=== PATIENT | female | born 1955 | race Caucasian/White ===

== ENCOUNTER 2016-12-10 20:36 | Emergency (ER) | payer OTHER ==
[2016-12-10] MEDS ORDERED: SODIUM CHLORIDE 0.9% 1,000 ML IV ONE ×2 (20:59→21:06)
[2016-12-10] MEDS ORDERED: diltiaZEM INJ 5 MG/ML VIAL IVP STA ×3 (21:06→23:03)
[2016-12-10] MEDS ORDERED: diltiaZEM INJ 5 MG/ML VIAL ONE ×3 (21:15→23:07)
[2016-12-10] MEDS ORDERED: FLECAINIDE 50 MG TABLET PO STA (23:04)
[2016-12-10] MEDS ORDERED: FLECAINIDE 50 MG TABLET PO ONE (23:07)
[2016-12-11] MEDS ORDERED: diltiaZEM INJ 5 MG/ML VIAL IVP STA (00:26)
== END 2016-12-11 01:52 | disposition home or self-care (01) ==
DX: I48.91 Unspecified atrial fibrillation (principal); Z79.82 Long term (current) use of aspirin
CPT/HCPCS: 36415; 80053; 83690; 84443; 84484; 85025; 85379; 93005; 93010; 99284; A9270

== ENCOUNTER 2017-01-12 11:20 | Outpatient (CLI) | payer OTHER | END 2017-01-12 11:21 | disposition home or self-care (01) | DX: I48.0 Paroxysmal atrial fibrillation (principal); K76.89 Other specified diseases of liver ==

== ENCOUNTER 2017-02-07 08:48 | Outpatient (CLI) | payer OTHER | END 2017-02-07 08:49 | disposition home or self-care (01) | DX: K76.89 Other specified diseases of liver (principal) ==

== ENCOUNTER 2017-04-09 11:32 | Outpatient (CLI) | payer OTHER ==
[2017-04-09 16:05] VITALS: BP 128/86
--- NOTE | 2017-04-10 03:02 | CARDIAC PROCEDURE NOTE ---
DATE OF SERVICE: PRIMARY CARE PHYSICIAN: Dr. Lamar FORECAST ANALYST: Dr. Cruz PROCEDURE: Treadmill MPS. PROCEDURE SYMPTOMS: Paroxysmal atrial fibrillation. CARDIAC RISK FACTORS: Include age and family history. PREVIOUS CARDIAC PROCEDURES: In 2009 ETT. CLINICAL HISTORY: A 62-year-old female without known coronary artery disease. INITIAL RESTING VITAL SIGNS: Blood pressure 128/86, heart rate 71, height 65 inches, weight 165 pound s, BMI 27.5. PROCEDURE AND FINDINGS: The patient's identity and date verified. Consent signed. The patient p erformed treadmill exercise using a Kobe protocol completing 9 minutes, 21 seconds and completing an estimated workload of 10.1 metabolic equivalents. At target heart rate, Cardiolite was injected and the patient exercised another 60+ seconds. Maximal blood pressure was 194/68 with a heart rate of 145 beats per minute or 91% of maximum predicted heart rate for age. The blood pressure response to exer cise was abnormally high. The patient stopped because of fatigue. The resting ECG demonstrated normal sinus rhythm with early transition. Maximum ST segment depression was less than 0.5 mm and upsloping . No ectopy nor arrhythmia. FINAL IMPRESSION: 1. Negative stress electrocardiogram for ischemia by electrocardiographic criteria. 2. Negative stress test clinically for angina. 3. No ectopy nor arrhythmia. 4. Hypertensive response to exercise. 5. [place] [employer] functional class 1. 6. Await myocardial perfusion report. JOB #: [id number] EXT JOB #:[id number]
--- NOTE | 2017-04-10 08:20 | Nuclear Medicine Report ---
EXAM: SINGLE-ISOTOPE EXERCISE STRESS TEST. SINGLE-ISOTOPE AND ONE-DAY REST/STRESS MYOCARDIAL PERFUSION SCAN S WITH TOMOGRAPHIC IMAGING, QUANTITATIVE ANALYSIS, WALL MOTION ANALYSIS AND CALCULATION OF EJECTION F RACTION. EXAM DATE: 04/09/2017 10:00 AM. CLINICAL HISTORY: Paroxysmal with atrial fibrillation. COMPARISON: None available. TECHNIQUE: A rest myocardial perfusion scan was done with tomography after the intravenous administration of 13 mCi Tc-99m sestamibi. After an appropriate delay, a treadmill exercise stress was performed according to department protoco l. The patient exercised for 9 minutes and 21 seconds. The maximum heart rate was 191 bpm, which was 120% of the maximum predicted heart rate of 159 bpm. At approximately peak heart rate, 39 mCi of Tc-9 9m sestamibi was injected for stress myocardial perfusion scan. Motion correction was applied when ap propriate. Gated tomographic images were obtained for wall motion analysis and computation of left ventricular e jection fraction. FINDINGS: No convincing fixed or reversible perfusion defects are identified. Wall motion analysis demonstrates no focal wall motion abnormality. The left ventricular end-diastolic volume is 62 cc. The left ventricular end-systolic volume is 10 cc . The left ventricular ejection fraction is calculated to be 85%. IMPRESSION: 1. No scintigraphic findings to indicate myocardial ischemia. Negative for infarct. 2. Normal left ventricular ejection fraction of >65%. 3. Normal segmental and global wall motion. 4. Normal left ventricular cavity size, no change with stress. [facility] Referring Provider Line: [phone] SITE ID: [id number]
== END 2017-04-09 11:33 | disposition home or self-care (01) ==
LOC: DI 11:32
PROVIDERS: ATTEND Internal Medicine Cardiovascular Disease
DX: I48.0 Paroxysmal atrial fibrillation (principal)
CPT/HCPCS: 78452; 93017; A9500

== ENCOUNTER 2017-05-13 13:55 | Outpatient (CLI) | payer OTHER ==
--- NOTE | 2017-05-14 11:49 | Mammography Report ---
DIGITAL SCREENING MAMMOGRAM: 05/13/2017 CLINICAL INDICATION: A 62-year-old with family history of breast cancer for screening. COMPARISON: 04/2016, 02/2015, 11/2013, 06/2012, 04/2011, 12/2009, 06/2008 TECHNIQUE: Routine CC and MLO projections were obtained of the breasts as well as bilateral laterall y exaggerated craniocaudal views. FINDINGS: The breasts demonstrate scattered fibroglandular densities bilaterally. Punctate, typical ly benign calcifications are present. No suspicious masses, clustered microcalcifications, or region s of architectural distortion are identified. IMPRESSION: BENIGN FINDINGS. RECOMMENDATION: Routine annual screening unless otherwise clinically indicated. BIRADS CATEGORY 2 - BENIGN FINDINGS. STANDARD QUALIFYING STATEMENTS 1. This examination was reviewed with the aid of Computer-Aided Detection (CAD). 2. A negative or benign imaging report should not delay biopsy if clinically suspicious findings are present. Consider surgical consultation if warranted. More than 5% of cancers are not identified by i maging. 3. Dense breasts may obscure an underlying neoplasm. JOB #: [id number] EXT JOB #:[id number]
== END 2017-05-13 13:56 | disposition home or self-care (01) ==
LOC: DI 13:55
PROVIDERS: ATTEND Family Medicine
DX: Z12.31 Encounter for screening mammogram for malignant neoplasm of breast (principal); Z80.3 Family history of malignant neoplasm of breast
CPT/HCPCS: 77067

== ENCOUNTER 2017-05-22 08:00 | Outpatient (CLI) | payer OTHER ==
[2017-05-22 14:22] LABS: ALBUMIN/GLOBULIN RATIO 1.7 (1.0-2.2); BILIRUBIN,TOTAL 0.5 mg/dL (0.2-1.0); BUN - BLOOD UREA NITROGEN 19 mg/dL (6-20); CALCIUM 9.1 mg/dL (8.5-10.3); CARBON DIOXIDE - CO2 29 mmol/L (21-32); CHLORIDE 105 mmol/L (101-111); CHOL/HDL RATIO 3.6 (<4.4); CHOLESTEROL 222 mg/dL; CREATININE 0.7 mg/dL (0.4-1.0); GFR - MDRD 85 (>89); GLUCOSE 102 mg/dL (70-100); HDL CHOLESTEROL 61 mg/dL; LDL/HDL RATIO 2.4 (<4.4); POTASSIUM 3.9 mmol/L (3.5-5.0); SODIUM 141 mmol/L (135-145); TOTAL PROTEIN 6.8 g/dL (6.7-8.2); TRIGLYCERIDES 79 mg/dL; VLDL CHOLESTEROL 16 mg/dL
== END 2017-05-22 08:01 | disposition home or self-care (01) ==
LOC: LAB.WCP 08:00
PROVIDERS: ATTEND Family Medicine
DX: E78.5 Hyperlipidemia, unspecified (principal)
CPT/HCPCS: 36415; 80053; 80061

== ENCOUNTER 2017-06-03 11:16 | Outpatient (CLI) | payer OTHER ==
--- NOTE | 2017-06-04 12:43 | Ultrasound Report ---
ULTRASOUND OF THE LEFT ANKLE: 06/03/2017 CLINICAL HISTORY: Patient has swelling of the left ankle. TECHNIQUE: Real-time scanning was performed with customer development representative static images obtained. FINDINGS: Left lateral ankle shows a well-circumscribed hypoechoic prominence within its lateral asp ect that most likely represents a benign lipoma. It measures 2.6 x 0.56 x 3.36 cm. This mass appear s relatively homogeneous and well-circumscribed. It most likely represents a benign lipoma. Recomme nd an MRI of the left ankle to further confirm this benign etiology. IMPRESSION: PATIENT'S PALPABLE MASS ALONG THE LATERAL ASPECT OF THE LEFT ANKLE PRESENTS A WELL-CI RCUMSCRIBED HYPOECHOIC LESION MEASURING 2.6 X 0.56 X 3.36 CM. IT MOST LIKELY REPRESENTS A BENIGN LIP MARYLOU. RECOMMEND A NONCONTRAST MRI OF THE LEFT ANKLE TO FURTHER CONFIRM THIS BENIGN ETIOLOGY. JOB #: [id number] EXT JOB #:[id number]
== END 2017-06-03 11:17 | disposition home or self-care (01) ==
LOC: DI 11:16
PROVIDERS: ATTEND Family Medicine
DX: R22.42 Localized swelling, mass and lump, left lower limb (principal)
CPT/HCPCS: 76882

== ENCOUNTER 2017-06-17 13:37 | Outpatient (CLI) | payer OTHER ==
--- NOTE | 2017-06-17 17:09 | MRI Report ---
EXAM: LEFT ANKLE/HINDFOOT MRI WITHOUT CONTRAST EXAM DATE: 06/17/2017 02:31 PM. CLINICAL HISTORY: Left ankle swelling. COMPARISON: None. TECHNIQUE: Multiplanar, multisequence T1-weighted and fluid-sensitive sequences of the ankle/hindfoot without contrast. Other: None. FINDINGS: Bones: No fractures or subluxations. No marrow edema. No bone lesions. Articular Cartilage: Unremarkable. Ligaments: The anterior and posterior tibiofibular, anterior and posterior talofibular, and calcaneof ibular ligaments are intact. The deep and superficial deltoid and spring ligaments are intact. Anterior Tendons: The tibialis anterior, extensor hallucis longus, and extensor digitorum longus tend ons are unremarkable. Medial Tendons: The tibialis posterior, flexor digitorum longus, and flexor hallucis longus tendons a re unremarkable. Lateral Tendons: The peroneus brevis and longus are unremarkable. Achilles Tendon: The Achilles tendon is unremarkable. Musculature: No edema or fatty atrophy. Other: No effusions. The contents of the sinus tarsi and tarsal tunnel are unremarkable. No plantar f asciitis. At the site of the palpable abnormality, the patient has a subcutaneous lipoma lateral to t he talus. This measures approximately 0.9 x 4.0 x 3.2 cm (series 801, image 15). IMPRESSION: Subcutaneous lipoma at the site of the palpable abnormality. [facility] MUSCULOSKELETAL RADIOLOGY SECTION Referring Provider Line: [phone] SITE ID: [id number]
== END 2017-06-17 13:38 | disposition home or self-care (01) ==
LOC: DI 13:37
PROVIDERS: ATTEND Family Medicine
DX: D17.79 Benign lipomatous neoplasm of other sites (principal)

== ENCOUNTER 2017-08-17 07:33 | Outpatient (CLI) | payer OTHER ==
--- NOTE | 2017-08-17 10:00 | Ultrasound Report ---
LIVER ULTRASOUND: 08/17/2017 CLINICAL INDICATION: Liver cyst. TECHNIQUE: Real-time scanning was performed with lead customer service representative static images obtained. COMPARISON: 02/07/2017. FINDINGS: The liver measures 16.9 cm. A simple cyst is again seen in the left lobe, slightly larger than previous, now measuring 8.4 x 7.6 x 5.7 cm (previously 7.5 x 7.1 x 4.5 cm). The remaining hepati c echotexture appears echogenic, compatible with fatty infiltration. The common bile duct measures 5 mm. No intrahepatic biliary dilatation or solid parenchymal lesion is seen. No free fluid is present. IMPRESSION: SLIGHT INTERVAL INCREASE IN SIZE OF LEFT HEPATIC CYST, NOW MEASURING 8.4 CM IN MAXIMAL D IAMETER (PREVIOUSLY 7.5 CM). NO BILIARY OBSTRUCTION OR SOLID HEPATIC LESION. JOB #: [id number] EXT JOB #:[id number]
== END 2017-08-17 07:34 | disposition home or self-care (01) ==
LOC: DI 07:33
PROVIDERS: ATTEND Family Medicine
DX: K76.89 Other specified diseases of liver (principal)
CPT/HCPCS: 76705

== ENCOUNTER 2017-12-07 08:21 | Outpatient (CLI) | payer OTHER ==
--- NOTE | 2017-12-07 14:14 | Ultrasound Report ---
DATE OF SERVICE: 12/07/2017 RIGHT UPPER QUADRANT ULTRASOUND: 12/07/2017 CLINICAL INDICATION: Hepatic cyst. TECHNIQUE: Real-time scanning was performed with sales representative cash registers static images obtained. FINDINGS: As requested, an ultrasound of the liver was performed. The liver measures 17 cm. Hepatic echogenicity is normal. No intrahepatic biliary dilatation or focal parenchymal lesion is present. The common bile duct measures 7 mm. The cyst in the left lobe of the liver measures 7.9 x 7.4 x 5.3 cm. No free fluid is noted. IMPRESSION: STABLE CYST IN THE LEFT LOBE OF THE LIVER. TD: 12/07/2017 15:13
== END 2017-12-07 08:22 | disposition home or self-care (01) ==
LOC: DI 08:21
PROVIDERS: ATTEND Family Medicine
DX: K76.89 Other specified diseases of liver (principal)
CPT/HCPCS: 76705

== ENCOUNTER 2018-07-08 08:54 | Outpatient (CLI) | payer OTHER | END 2018-07-08 08:55 | disposition home or self-care (01) | LOC: DI.N 08:54 | PROVIDERS: ATTEND Radiology Diagnostic Radiology | DX: Z12.31 Encounter for screening mammogram for malignant neoplasm of breast (principal) | CPT/HCPCS: 77067 ==

== ENCOUNTER 2018-12-24 07:17 | Outpatient (CLI) | payer OTHER ==
--- NOTE | 2018-12-24 11:32 | Ultrasound Report ---
Reason: HEPATIC CYST Procedure Date: 12/24/2018 Accession Number: [id number] / [id number] Procedure: US - Abdomen Limited CPT Code: FULL RESULT: EXAM: ABDOMEN ULTRASOUND LIMITED, RUQ EXAM DATE: 12/24/2018 07:35 AM. CLINICAL HISTORY: Hepatic cyst. COMPARISON: Abdomen limited 12/07/2017 8:41 AM. Abdomen limited 02/07/2017 8:51 AM. Complete 01/12/2017 11:35 AM. TECHNIQUE: Real-time scanning was performed with static images obtained. FINDINGS: Liver: Normal in size and echotexture. 16.4 cm. Main portal vein flow: Hepatopetal. There is an oval anechoic simple cyst of the left lobe of liver measuring 8.1 x 6.5 x 8.8 cm. Accounting for technical measurement variations, there has been no significant interval change dating back to 02/07/2017. Gallbladder: Normal. No stones, wall thickening, or sonographic Wild's sign. Biliary System: CBD measures 6.5 mm. No intrahepatic or extrahepatic ductal dilatation. Other: Normal appearance of the right kidney. IMPRESSION: 1. Stable simple cyst of the left lobe of liver today measuring 8.8 cm in maximum dimension. [facility]
== END 2018-12-24 07:18 | disposition home or self-care (01) ==
LOC: DI 07:17
PROVIDERS: ATTEND Family Medicine
DX: K76.89 Other specified diseases of liver (principal)
CPT/HCPCS: 76705

== ENCOUNTER 2019-04-19 15:33 | Outpatient (CLI) | payer OTHER ==
--- NOTE | 2019-04-19 17:39 | Ultrasound Report ---
Reason: LIPOMA Procedure Date: 04/19/2019 Accession Number: [id number] / [id number] Procedure: US - Ext Limited Non Vascular CPT Code: FULL RESULT: EXAM: RIGHT LOWER EXTREMITY ULTRASOUND - LIMITED EXAM DATE: 04/19/2019 04:46 PM. CLINICAL HISTORY: Right lateral ankle swelling. COMPARISON: EXT LIMITED NON VASCULAR 06/03/2017 11:21 AM. TECHNIQUE: Real-time scanning was performed with static images obtained. FINDINGS: Sonographic interrogation of patient's lateral right ankle lump demonstrates a lobulated hypoechoic lesion with echotexture similar to adjacent fat measuring 2.7 x 3.3 x 0.5 cm. No aggressive characteristics or cystic foci present. No hypervascularity. IMPRESSION: Probable sub-cutaneous lipoma about the lateral right ankle at site of palpable lump. [facility]
== END 2019-04-19 15:34 | disposition home or self-care (01) ==
LOC: DI 15:33
PROVIDERS: ATTEND Family Medicine
DX: D17.9 Benign lipomatous neoplasm, unspecified (principal)
CPT/HCPCS: 76882

== ENCOUNTER 2019-10-17 14:22 | Outpatient (CLI) | payer OTHER ==
--- NOTE | 2019-10-17 16:51 | Mammography Report ---
Reason: SCREENING MAMMO Procedure Date: 10/17/2019 Accession Number: [id number] / [id number] Procedure: BEATRIZ - Screening Mammo w/Gabriel CPT Code: Final Report FULL RESULT: EXAM: Screening Mammo w/Gabriel DATE: 10/17/2019 2:27 PM CLINICAL HISTORY: The patient is an asymptomatic 64-year-old female presenting for screening mammography. Family history of breast cancer. TECHNIQUE: (B) - Bilateral CC and MLO views were obtained. Tomography utilized. COMPARISON: 07/08/2018, 05/13/2017, 04/28/2016, 03/05/2015 and 12/14/2013 PARENCHYMAL PATTERN: (A) - The breasts demonstrate scattered fibroglandular densities bilaterally. FINDINGS: The pattern of asymmetry is stable given positional differences. Few scattered and loosely grouped calcifications again identified. There are no developing suspicious masses, calcifications, or areas of distortion. IMPRESSION: Benign findings. BI-RADS category 2. RECOMMENDATION: (ANNUAL) - Recommend routine annual screening mammography. BI-RADS CATEGORY: BI-RADS category 2. STANDARD QUALIFYING STATEMENTS: 1. This examination was not reviewed with the aid of Computer-Aided Detection (CAD). 2. A negative or benign imaging report should not preclude biopsy if clinically suspicious findings are present. 3. Dense breasts may obscure an underlying neoplasm. 4. This examination was reviewed with the aid of 3D breast imaging (tomosynthesis).
== END 2019-10-17 14:23 | disposition home or self-care (01) ==
LOC: DI 14:22
DX: Z12.31 Encounter for screening mammogram for malignant neoplasm of breast (principal); Z80.3 Family history of malignant neoplasm of breast
CPT/HCPCS: 77063; 77067

== ENCOUNTER 2019-11-25 11:08 | Outpatient (CLI) | payer OTHER | END 2019-11-25 11:09 | disposition home or self-care (01) | LOC: DI 11:08 | PROVIDERS: ATTEND Internal Medicine Cardiovascular Disease | DX: I48.0 Paroxysmal atrial fibrillation (principal); I31.3 Pericardial effusion (noninflammatory) | CPT/HCPCS: 93306 ==

== ENCOUNTER 2020-07-25 07:25 | Outpatient (CLI) | payer OTHER ==
--- NOTE | 2020-07-25 10:39 | Ultrasound Report ---
PROCEDURE: Abdomen Complete INDICATIONS: HEPATIC CYST TECHNIQUE: Real-time scanning was performed of the abdominal and retroperitoneal organs, with image documentatio n. COMPARISON: None. FINDINGS: Liver: Liver is enlarged with increased liver parenchymal echotexture consistent with hepatic steato sis. 7.5 x 7.2 x 5.5 cm simple appearing cyst is noted in left lobe of liver. No gross solid appearin g hepatic lesion. Gallbladder: There is no gallstone. No gallbladder wall thickening or pericholecystic fluid. No sonog raphic Wild's sign. Biliary ducts: Intrahepatic bile ducts are non-dilated. Extrahepatic bile duct caliber measures 6.9 mm. Normal is 6-7 mm or less in diameter, or 10 mm or less post-cholecystectomy. Pancreas: Visualized portions of the pancreas are sonographically normal. Spleen: Spleen is normal in size and homogeneous in echotexture. Kidneys: Kidneys are normal in size and echotexture. Right kidney measures 11.2 cm long; left kidne y measures 11.3 cm long. No hydronephrosis or nephrolithiasis. No solid masses. Aorta: Visualized aorta is normal in caliber at less than 3 cm. Iliacs: Proximal common iliac arteries are normal in caliber at less than 2.5 cm. IVC: Intrahepatic inferior vena cava is patent. Miscellaneous: No free abdominal fluid. IMPRESSION: 1. Simple appearing left hepatic lobe cyst measures 7.5 x 7.2 x 5.5 cm in size. Mild hepatomegaly and hepatic steatosis. No gross solid appearing hepatic lesion. 2. Rest of the exam is unremarkable. Reviewed by: Pito Olmos MD on 07/25/2020 10:37 AM PDT Approved by: Pito Olmos MD on 07/25/2020 10:37 AM PDT Station ID: [id number]
== END 2020-07-25 07:26 | disposition home or self-care (01) ==
LOC: DI 07:25
PROVIDERS: ATTEND Family Medicine
DX: K76.89 Other specified diseases of liver (principal); K76.0 Fatty (change of) liver, not elsewhere classified
CPT/HCPCS: 76700

== ENCOUNTER 2020-08-29 08:00 | Outpatient (CLI) | payer OTHER ==
[2020-08-29 18:31] LABS: BASOPHILS # (AUTO) 0.1 10^3/uL (0.0-0.1); BASOPHILS % (AUTO) 1.5 %; EOSINOPHILS # (AUTO) 0.1 10^3/uL (0.0-0.7); EOSINOPHILS % (AUTO) 1.8 %; HGB - HEMOGLOBIN 14.4 g/dL (12.0-16.0); LYMPHOCYTES # (AUTO) 1.7 10^3/uL (1.5-3.5); LYMPHOCYTES % (AUTO) 30.9 %; MEAN CORPUSCULAR HEMOGLOBIN 31.7 pg (27.0-31.0); MEAN CORPUSCULAR HGB CONC 31.9 g/dL (32.0-36.0); MEAN CORPUSCULAR VOLUME 99.3 fL (81.0-99.0); MEAN PLATELET VOLUME 10.2 fL (7.9-10.8); MONOCYTES # (AUTO) 0.4 10^3/uL (0.0-1.0); MONOCYTES % (AUTO) 6.8 %; NEUTROPHILS # (AUTO) 3.2 10^3/uL (1.5-6.6); NEUTROPHILS % (AUTO) 58.6 %; PLT - PLATELET COUNT 288 10^3/uL (130-450); RED BLOOD COUNT 4.54 10^6/uL (4.20-5.40); RED CELL DISTRIBUTION WIDTH 12.8 % (12.0-15.0); WHITE BLOOD COUNT 5.4 x10^3/uL (4.8-10.8)
[2020-08-29 18:46] LABS: ALBUMIN 4.5 g/dL (3.2-5.5); ALBUMIN/GLOBULIN RATIO 1.7 (1.0-2.2); ALKALINE PHOSPHATASE 74 IU/L (42-121); ALT ALANINE AMINOTRANSFERASE 22 IU/L (10-60); AST ASPARTATE AMINOTRANSFERASE 15 IU/L (10-42); BILIRUBIN,TOTAL 0.5 mg/dL (0.2-1.0); BUN - BLOOD UREA NITROGEN 18 mg/dL (6-20); CALCIUM 9.5 mg/dL (8.5-10.3); CARBON DIOXIDE - CO2 29 mmol/L (21-32); CHLORIDE 103 mmol/L (101-111); CHOL/HDL RATIO 3.4 (<4.4); CHOLESTEROL 250 mg/dL; CREATININE 0.8 mg/dL (0.4-1.0); GLUCOSE 96 mg/dL (70-100); HDL CHOLESTEROL 73 mg/dL; LDL CHOLESTEROL,CALCULATED 163 mg/dL; LDL/HDL RATIO 2.2 (<4.4); SODIUM 139 mmol/L (135-145); TOTAL PROTEIN 7.2 g/dL (6.7-8.2); VLDL CHOLESTEROL 14 mg/dL
[2020-08-29 20:27] LABS: HEMOGLOBIN A1c% 5.3 % (4.27-6.07)
== END 2020-08-29 08:01 | disposition home or self-care (01) ==
LOC: LAB.WCP 08:00
PROVIDERS: ATTEND Family Medicine
DX: I48.0 Paroxysmal atrial fibrillation (principal); E74.39 Other disorders of intestinal carbohydrate absorption
CPT/HCPCS: 36415; 80050; 80061; 83036; 83721

== ENCOUNTER 2020-10-17 07:20 | Outpatient (CLI) | payer OTHER ==
[2020-10-17 14:28] LABS: BILIRUBIN,URINE NEGATIVE (NEGATIVE); GLUCOSE, URINE (UA) NEGATIVE (NEGATIVE); KETONES,URINE (UA) NEGATIVE (NEGATIVE); LEUKOCYTE ESTERASE, URINE LARGE (NEGATIVE); NITRITE,URINE POSITIVE (NEGATIVE); OCCULT BLOOD,URINE MODERATE (NEGATIVE); PROTEIN,URINE NEGATIVE (NEGATIVE); UROBILINOGEN,URINE 0.2 (NORMAL) E.U./dL (NORMAL)
[2020-10-17 14:37] LABS: CLARITY,URINE CLOUDY (CLEAR)
[2020-10-17 14:51] LABS: BACTERIA,URINE Many /HPF (None Seen); SQUAMOUS EPITHELIAL CELL,UR RARE Squamous (<= Few); WBC CLUMPS,URINE PRESENT
== END 2020-10-17 23:59 | disposition home or self-care (01) ==
LOC: LAB.R 07:20
PROVIDERS: ATTEND Nurse Practitioner
DX: N30.01 Acute cystitis with hematuria (principal)
CPT/HCPCS: 81001; 87077; 87086; 87181

== ENCOUNTER 2020-10-26 08:47 | Outpatient (CLI) | payer OTHER ==
--- NOTE | 2020-10-29 10:19 | Mammography Report ---
BILATERAL DIGITAL SCREENING MAMMOGRAM 3D/2D: 10/26/2020 CLINICAL: Routine screening. Family history of breast cancer. Comparison is made to exams dated: 10/17/2019 mammogram, 07/08/2018 mammogram, 05/13/2017 mammogram, mammogram, 03/05/2015 mammogram, and 12/14/2013 mammogram - [facility]. Ther e are scattered fibroglandular elements in both breasts. No significant masses, calcifications, or other findings are seen in either breast. There has been no significant interval change. IMPRESSION: NEGATIVE There is no mammographic evidence of malignancy. A 1 year screening mammogram is recommended. This exam was interpreted at Station ID: [id number]. NOTE: For mammograms, a report in lay terms will be sent to the patient. Approximately 15% of breast malignancies will not be visualized mammographically. In the management of a palpable breast mass, a negative mammogram must not discourage biopsy of a clinically suspicious lesion. Electronically Signed By: Ollie Stock M.D. atbry/javon:10/26/2020 10:23:29 ACR BI-RADS Category 1: Negative 3341F PARENCHYMAL PATTERN: (A) - The breast(s) demonstrate(s) scattered fibroglandular densities. BI-RADS CATEGORY: (1) - 1 RECOMMENDATION: (ANNUAL) - Recommend routine annual screening mammography. [id number] 1 year screening LATERALITY: (B)
== END 2020-10-26 08:48 | disposition home or self-care (01) ==
LOC: DI.N 08:47
DX: Z12.31 Encounter for screening mammogram for malignant neoplasm of breast (principal); Z80.3 Family history of malignant neoplasm of breast

== ENCOUNTER 2020-11-30 19:08 | Emergency (ER) | payer OTHER ==
[2020-11-30 19:14] VITALS: BP 146/86
--- NOTE | 2020-11-30 19:55 | XRAY Report ---
PROCEDURE: Elbow 3 View LT INDICATIONS: Fall TECHNIQUE: 3 views of the elbow were acquired. COMPARISON: None FINDINGS: Acute mildly displaced fracture of the radial head neck junction along the lateral aspect, best seen on oblique view. Small elbow joint effusion. IMPRESSION: Acute mildly displaced radius fracture at the head/neck junction. Reviewed by: Keven Campbell MD on 11/30/2020 7:54 PM PST Approved by: Keven Campbell MD on 11/30/2020 7:54 PM PST Station ID: [id number]
--- NOTE | 2020-11-30 19:56 | XRAY Report ---
PROCEDURE: Forearm LT INDICATIONS: Fall TECHNIQUE: 2 views of the forearm were acquired. COMPARISON: None. FINDINGS: Acute mildly displaced fracture of the radial head neck junction. Radius and ulna are other lewis intact. Normal anatomic alignment of the wrist. IMPRESSION: Acute mildly displaced fracture of the radial head/neck junction. Reviewed by: Keven Campbell MD on 11/30/2020 7:54 PM PST Approved by: Keven Campbell MD on 11/30/2020 7:54 PM PST Station ID: [id number]
--- NOTE | 2020-11-30 19:58 | XRAY Report ---
PROCEDURE: Ribs 2 View LT INDICATIONS: Trauma, fall, rib pain TECHNIQUE: 3 views of the left ribs and a single PA chest were obtained. COMPARISON: None FINDINGS: Surgical changes and devices: None. Bones and chest wall: No fractures or dislocations. No suspicious bony lesions. Overlying soft tis sues appear unremarkable. Lungs and pleura: The visualized lung appears clear. No pleural effusions or pneumothorax are visib le. IMPRESSION: No plain radiographic evidence of rib fracture demonstrated. Reviewed by: Keven Campbell MD on 11/30/2020 7:56 PM PST Approved by: Keven Campbell MD on 11/30/2020 7:56 PM PST Station ID: [id number]
[2020-11-30] MEDS ORDERED: oxyCODONE 5 MG TABLET PO STA (20:19)
[2020-11-30] MEDS ORDERED: ONDANSETRON ODT 4 MG TABLET TL STA (20:19)
--- NOTE | 2020-11-30 20:21 | ED Physician Documentation ---
History of Present Illness - Stated complaint Stated Complaint: FELL DOWN STAIRS - Chief complaint Chief Complaint: Trauma Ext - History obtained from History obtained from: Patient - History of Present Illness Timing: Today Pain level max: 6 Pain level now: 5 - Additonal information Additional information: Patient is a 65-year-old female who presents to the emergency department after a fall down the stairs earlier today. Complains of pain to the left elbow and left ribs. Worse with movement, better with rest. Did not strike her head. No neck or back pain. No loss of consciousness. No vomiting. No numbness or tingling. Review of Systems Constitutional: denies: Fever, Chills GI: denies: Vomiting Musculoskeletal: denies: Neck pain, Back pain Neurologic: denies: Confused, Headache, Head injury, LOC PD PAST MEDICAL HISTORY - Past Medical History Past Medical History: Yes Cardiovascular: High cholesterol, Atrial fibrillation, Murmur Respiratory: None GI: GERD Psych: Depression - Past Surgical History Past Surgical History: Yes General: Other - Present Medications Home Medications: Ambulatory Orders Medication Instructions Recorded Confirmed Aspirin 81 mg PO DAILY 12/10/16 11/30/20 Biotin 5 mg PO DAILY 12/10/16 11/30/20 Bupropion HCl [Wellbutrin Xl] 300 mg PO DAILY 12/10/16 11/30/20 Calcium Carbonate/Vitamin D3 1 tab PO DAILY 12/10/16 11/30/20 [Calcium 500-Vit D3 200 Tablet] Cetirizine [ZyrTEC] 10 mg PO DAILY 12/10/16 11/30/20 Esomeprazole Magnesium [Nexium] 20 mg PO DAILY 12/10/16 11/30/20 Magnesium 250 mg PO DAILY 12/10/16 11/30/20 Diltiazem HCl [Diltiazem 12Hr ER] 120 mg PO DAILY 11/30/20 11/30/20 Valacyclovir HCl [Valtrex] 500 mg PO DAILY 11/30/20 11/30/20 oxyCODONE [Roxicodone] 5 mg PO Q4-6H PRN #7 tablet 11/30/20 - Allergies Allergies/Adverse Reactions: Allergies Allergy/AdvReac Type Severity Reaction Status Date / Time amoxicillin Allergy Nausea Verified 11/30/20 19:14 Sulfa (Sulfonamide Allergy Rash Verified 11/30/20 19:14 Antibiotics) - Social History Does the pt smoke?: No Smoking Status: Never smoker Does the pt drink ETOH?: No Does the pt have substance abuse?: No - Immunizations Immunizations are current?: Yes - POLST Patient has POLST: No PD ED PE NORMAL - Vitals Vital signs reviewed: Yes - General General: Alert and oriented X 3, No acute distress, Well developed/nourished - HEENT HEENT: Moist mucous membranes - Neck Neck: Supple, no meningeal sign - Cardiac Cardiac: RRR, Strong equal pulses - Respiratory Respiratory: No respiratory distress, Clear bilaterally, Other (TTP L, lower anterior ribs. no crepitus or ecchymosis.) - Abdomen Abdomen: Soft, Non tender, Non distended - Derm Derm: Warm and dry - Extremities Extremities: Other (TTP over the L radial head. pain with pronation and supination of the L forearm. NVI. o/w normal exam of the arm. ) - Neuro Neuro: Alert and oriented X 3 - Psych Psych: Normal mood, Normal affect Results - Vitals Vitals: Vital Signs - 24 hr 11/30/20 19:10 Temperature 36.6 C Heart Rate 83 Respiratory 17 Rate Blood Pressure 146/86 H O2 Saturation 97 Oxygen O2 Source Room air - Rads (name of study) Rib xray Radiology: Prelim report reviewed, EMP read contemporaneously, See rad report (no acute abnormality.) L elbow xray Radiology: Prelim report reviewed, EMP read contemporaneously, See rad report (radial head fracture) PD MEDICAL DECISION MAKING - ED course Complexity details: reviewed results, considered differential, d/w patient ED course: 65-year-old female presents to the emergency department after a fall down the stairs. She has a left radial head fracture. Placed in a sling. No acute findings on x-ray of the ribs. No pneumothorax or hemothorax. Will prescribe pain medication for home. No head, neck, back pain. Did not strike her head. Is not anticoagulated. Patient counseled regarding signs and symptoms for which I believe and urgent re-evaluation would be necessary. Patient with good understanding of and agreement to plan and is comfortable going home at this time This document was made in part using voice recognition software. While efforts are made to proofread this document, sound alike and grammatical errors may occur. Departure - Departure Disposition: 01 Home, Self Care Clinical Impression: Left radial head fracture Qualifiers: Encounter type: initial encounter Fracture type: closed Fracture alignment: nondisplaced Qualified Code(s): S52.125A - Nondisplaced fracture of head of left radius, initial encounter for closed fracture Contusion of rib on left side Qualifiers: Encounter type: initial encounter Qualified Code(s): S20.212A - Contusion of left front wall of thorax, initial encounter Condition: Good Instructions: ED Fx Radial Head, ED Contusion Rib Follow-Up: Paty Contreras DO [Primary Care Provider] - Within 1 week [facility] [Provider Group] Prescriptions: oxyCODONE [Roxicodone] 5 mg PO Q4-6H PRN #7 tablet PRN Reason: pain Comments: Return if you worsen. This should heal on its own. Wear the sling until released by orthopedics. Do not drink alcohol or drive while on narcotic pain medicine. Note that many narcotic pain relievers also contain tylenol/acetaminophen. Please ensure that your total dose of acetaminophen from all sources does not exceed 3 grams (3000mg) per day. You may constipated on this medication, take a stool softener such as "Colace" twice a day while you are on it. Also recommend a scuz-hig-yiyokut laxative such as senna or MiraLAX any day that you do not have a bowel movement. If you received narcotic pain medication in the emergency department, do not drive or operate machinery for the next 24 hours. Discharge Date/Time: 11/30/20 20:45
== END 2020-11-30 20:45 | disposition home or self-care (01) ==
LOC: ED 19:08
DX: S52.125A Nondisplaced fracture of head of left radius, initial encounter for closed fracture (principal); S20.212A Contusion of left front wall of thorax, initial encounter; W10.9XXA Fall (on) (from) unspecified stairs and steps, initial encounter; I48.91 Unspecified atrial fibrillation
CPT/HCPCS: 71100; 73080; 73090; 99284; A9270; Q0162

== ENCOUNTER 2021-01-10 08:00 | Outpatient (CLI) | payer OTHER ==
--- NOTE | 2021-01-10 18:54 | XRAY Report ---
PROCEDURE: Elbow 3 View LT INDICATIONS: CLOSED FX OF LEFT WRIST TECHNIQUE: 3 views of the elbow were acquired. COMPARISON: X-ray elbow 11/30/2020 FINDINGS: Bones: There is stable alignment of a proximal radial head fracture. Minimal interval healing. No mikael picious bony lesions. Soft tissues: No elbow joint effusion. No suspicious soft tissue calcifications. IMPRESSION: Stable alignment of proximal radial head fracture. Reviewed by: Maria Dolores Alex MD on 01/10/2021 5:52 PM [facility] Approved by: Maria Dolores Alex MD on 01/10/2021 5:52 PM [facility] Station ID: [id number]
== END 2021-01-10 23:59 | disposition home or self-care (01) ==
LOC: DI.N 08:00
PROVIDERS: ATTEND Orthopaedic Surgery
DX: S52.125A Nondisplaced fracture of head of left radius, initial encounter for closed fracture (principal)

== ENCOUNTER 2021-04-09 08:00 | Outpatient (CLI) | payer MEDICARE, OTHER ==
[2021-04-09 17:59] LABS: BASOPHILS # (AUTO) 0.1 10^3/uL (0.0-0.1); BASOPHILS % (AUTO) 1.4 %; EOSINOPHILS # (AUTO) 0.1 10^3/uL (0.0-0.7); EOSINOPHILS % (AUTO) 1.8 %; HCT - HEMATOCRIT 43.9 % (37.0-47.0); HGB - HEMOGLOBIN 14.9 g/dL (12.0-16.0); LYMPHOCYTES % (AUTO) 34.6 %; MEAN CORPUSCULAR HEMOGLOBIN 32.6 pg (27.0-31.0); MEAN CORPUSCULAR HGB CONC 33.9 g/dL (32.0-36.0); MEAN CORPUSCULAR VOLUME 96.1 fL (81.0-99.0); MEAN PLATELET VOLUME 10.4 fL (7.9-10.8); MONOCYTES # (AUTO) 0.4 10^3/uL (0.0-1.0); NEUTROPHILS # (AUTO) 3.1 10^3/uL (1.5-6.6); NEUTROPHILS % (AUTO) 54.8 %; PLT - PLATELET COUNT 301 10^3/uL (130-450); RED BLOOD COUNT 4.57 10^6/uL (4.20-5.40); RED CELL DISTRIBUTION WIDTH 12.6 % (12.0-15.0); WHITE BLOOD COUNT 5.7 x10^3/uL (4.8-10.8)
[2021-04-09 18:09] LABS: ESTIMATED AVERAGE GLUCOSE 103 mg/dL (70-100); HEMOGLOBIN A1c% 5.2 % (4.27-6.07)
[2021-04-09 18:21] LABS: ALBUMIN 4.5 g/dL (3.2-5.5); ALBUMIN/GLOBULIN RATIO 1.6 (1.0-2.2); ALKALINE PHOSPHATASE 80 IU/L (42-121); ALT ALANINE AMINOTRANSFERASE 23 IU/L (10-60); AST ASPARTATE AMINOTRANSFERASE 15 IU/L (10-42); BILIRUBIN,TOTAL 0.8 mg/dL (0.2-1.0); BUN - BLOOD UREA NITROGEN 13 mg/dL (6-20); CALCIUM 9.5 mg/dL (8.5-10.3); CARBON DIOXIDE - CO2 29 mmol/L (21-32); CHLORIDE 99 mmol/L (101-111); CHOL/HDL RATIO 3.5 (<4.4); CHOLESTEROL 241 mg/dL; CREATININE 0.7 mg/dL (0.4-1.0); GFR - MDRD 84 (>89); GLUCOSE 102 mg/dL (70-100); HDL CHOLESTEROL 69 mg/dL; LDL CHOLESTEROL,CALCULATED 153 mg/dL; LDL/HDL RATIO 2.2 (<4.4); SODIUM 139 mmol/L (135-145); TOTAL PROTEIN 7.4 g/dL (6.7-8.2); TRIGLYCERIDES 95 mg/dL; VLDL CHOLESTEROL 19 mg/dL
[2021-04-09 18:26] LABS: THYROID STIMULATING HORMONE 1.46 uIU/mL (0.34-5.60)
[2021-04-09 18:52] LABS: CRP - C-REACTIVE PROTEIN < 1.0 mg/dL (0-1.0)
== END 2021-04-09 23:59 | disposition home or self-care (01) ==
LOC: LAB.WCP 08:00
PROVIDERS: ATTEND Family Medicine
DX: E74.39 Other disorders of intestinal carbohydrate absorption (principal); E78.5 Hyperlipidemia, unspecified; I48.0 Paroxysmal atrial fibrillation; G44.89 Other headache syndrome
CPT/HCPCS: 36415; 80050; 80053; 80061; 83036; 83721; 84443; 85025; 85651; 86140

== ENCOUNTER 2021-05-24 10:42 | Outpatient (CLI) | payer MEDICARE, OTHER ==
--- NOTE | 2021-05-24 16:55 | DEXA Report ---
PROCEDURE: Dexa Spine and/or Hip INDICATIONS: POST MENOPAUSAL TECHNIQUE: Dual energy x-ray absorptiometry (DXA) was performed on a [employer]anda System. Regions measur ed are the AP Spine, femoral neck, and if needed forearm. COMPARISON: None. FINDINGS: Lumbar Spine: Bone Mineral Density 0.905 g/cm/cm,T score 2.3, severe osteopenia Left Hip: Bone Mineral Density 0.855 g/cm/cm,T score -1.2, minimal osteopenia Left Femoral Neck: Bone Mineral Density 0.784 g/cm/cm, T score -1.8, mild to moderate moderate osteopenia (T score greater or equal to -1.0: NORMAL) (T score from -1.1 to -2.4: OSTEOPENIA) (T score less than or equal to -2.5 to: OSTEOPOROSIS) Impression: Osteopenia, approaching osteoporosis, most severe in the lumbar spine. Patients with diagnosis of osteoporosis or osteopenia should have regular bone mineral density assess ment. For those eligible for Medicare, routine testing is allowed once every 2 years. Testing frequ ency can be increased for patients who have rapidly progressing disease or for those who are receivin g medical therapy to restore bone mass. Reviewed by: Maria Dolores Alex MD on 05/24/2021 4:54 PM PDT Approved by: Maria Dolores Alex MD on 05/24/2021 4:54 PM PDT Station ID: [id number]
== END 2021-05-24 10:43 | disposition home or self-care (01) ==
LOC: DI 10:42
PROVIDERS: ATTEND Family Medicine
DX: M85.89 Other specified disorders of bone density and structure, multiple sites (principal)

== ENCOUNTER 2021-06-28 09:44 | Outpatient (CLI) | payer MEDICARE, OTHER ==
--- NOTE | 2021-07-01 16:37 | Mammography Report ---
UNILATERAL RIGHT DIGITAL DIAGNOSTIC MAMMOGRAM 3D/2D: 06/28/2021 CLINICAL: Diffuse right breast pain. Occasional right breast pain. Comparison is made to exams dated: 10/26/2020 mammogram, 10/17/2019 mammogram, 07/08/2018 mammogram, mammogram, 04/28/2016 mammogram, and 03/05/2015 mammogram - [facility]. The re are scattered fibroglandular elements in right breast. No significant masses, calcifications, or other findings are seen in the breast. IMPRESSION: NEGATIVE There is no abnormality seen in the right breast to correspond with the area of clinical concern/diff use pain, however, recommend clinical follow up for persistent or worsening symptoms, or development of any clinically suspicious findings. There is no mammographic evidence of malignancy. A follow-up screening mammogram in 6 months is recommended. Findings and recommendations were convey ed to the patient during today's evaluation. This exam was interpreted at Station ID: [id number]. NOTE: For mammograms, a report in lay terms will be sent to the patient. Approximately 15% of breast malignancies will not be visualized mammographically. In the management of a palpable breast mass, a negative mammogram must not discourage biopsy of a clinically suspicious lesion. Electronically Signed By: Ollie Stock M.D. aty/:06/28/2021 11:20:20 ACR BI-RADS Category 1: Negative 3341F PARENCHYMAL PATTERN: (A) - The breast(s) demonstrate(s) scattered fibroglandular densities. BI-RADS CATEGORY: (1) - 1 Mammogram [id number] 6 month follow-up LATERALITY: (B)
== END 2021-06-28 09:45 | disposition home or self-care (01) ==
LOC: DI 09:44
PROVIDERS: ATTEND Physician Assistant Medical
DX: N64.4 Mastodynia (principal)

== ENCOUNTER 2022-01-09 13:30 | Outpatient (CLI) | payer MEDICARE, OTHER ==
--- NOTE | 2022-01-10 07:46 | Mammography Report ---
BILATERAL DIGITAL SCREENING MAMMOGRAM 3D/2D: 01/09/2022 CLINICAL: Family history of breast cancer. Routine screening. Comparison is made to exams dated: 06/28/2021 mammogram, 10/26/2020 mammogram, 10/17/2019 mammogram, mammogram, 05/13/2017 mammogram, and 04/28/2016 mammogram - [facility]. The re are scattered fibroglandular elements in both breasts. No significant masses, calcifications, or other findings are seen in either breast. There has been no significant interval change. IMPRESSION: NEGATIVE There is no mammographic evidence of malignancy. A 1 year screening mammogram is recommended. This exam was interpreted at Station ID: [id number]. NOTE: For mammograms, a report in lay terms will be sent to the patient. Approximately 15% of breast malignancies will not be visualized mammographically. In the management of a palpable breast mass, a negative mammogram must not discourage biopsy of a clinically suspicious lesion. Electronically Signed By: Ollie Stock M.D. at/javon:01/09/2022 17:31:41 ACR BI-RADS Category 1: Negative 3341F PARENCHYMAL PATTERN: (A) - The breast(s) demonstrate(s) scattered fibroglandular densities. BI-RADS CATEGORY: (1) - 1 RECOMMENDATION: (ANNUAL) - Recommend routine annual screening mammography. [id number] 1 year screening LATERALITY: (B)
== END 2022-01-09 13:31 | disposition home or self-care (01) ==
LOC: DI.N 13:30
DX: Z12.31 Encounter for screening mammogram for malignant neoplasm of breast (principal); Z80.3 Family history of malignant neoplasm of breast

== ENCOUNTER 2022-06-16 13:57 | Outpatient (CLI) | payer MEDICARE, OTHER ==
--- NOTE | 2022-06-16 16:57 | XRAY Report ---
PROCEDURE: Knee 4 View LT INDICATIONS: L KNEE PX TECHNIQUE: 3 views of the left knee(s) were acquired. COMPARISON: None. FINDINGS: Bones: No fractures or dislocations. No suspicious bony lesions. Moderate medial and mild to modera te lateral patellofemoral compartment narrowing. Soft tissues: Mild joint effusion. No suspicious soft tissue calcifications. IMPRESSION: Osteoarthritic changes as above. Reviewed by: Maria Dolores Alex MD on 06/16/2022 4:55 PM PDT Approved by: Maria Dolores Alex MD on 06/16/2022 4:55 PM PDT Station ID: [id number]
--- NOTE | 2022-06-16 17:21 | XRAY Report ---
PROCEDURE: Thoracic Spine 3 View INDICATIONS: UPPER BACK PX TECHNIQUE: views of the thoracic spine were acquired. COMPARISON: None. FINDINGS: Bones: No fractures or dislocations. No suspicious bony lesions. 12 pairs of ribs are noted, and a ppear intact where visualized. Mild to moderate degenerative changes noted throughout the thoracic sp ine. Mild facet hypertrophy noted throughout the thoracic spine. Soft tissues: No paravertebral stripe thickening. IMPRESSION: 1. Multilevel degenerative disc disease. 2. Multilevel facet arthropathy. 3. No fracture. No acute osseous lesion. If there is continued clinical concern for pathology, then M RI should be considered for further evaluation. Reviewed by: Ruby Cunningham MD, PhD on 06/16/2022 5:20 PM PDT Approved by: Ruby Cunningham MD, PhD on 06/16/2022 5:20 PM PDT Station ID: [id number]
--- NOTE | 2022-06-16 17:22 | XRAY Report ---
PROCEDURE: Hip w/Pelvis 1V LT INDICATIONS: L HIP PX TECHNIQUE: AP pelvis with lateral view(s) of the left hip(s). COMPARISON: None. FINDINGS: Bones: No fractures or dislocations. Pelvic ring appears intact. No suspicious bony lesions. Mild osteoarthritis noted in left hip. Soft tissues: The visualized bowel gas pattern is normal. No suspicious soft tissue calcifications. IMPRESSION: Mild left hip osteoarthritis. No fracture. No acute osseous lesion. If symptoms and/or clinical concern for pathology persists, fur ther assessment with repeat plain film radiographs (7-10 days) or advanced imaging (CT, MR, bone scan ) should be considered. Reviewed by: Ruby Cunningham MD, PhD on 06/16/2022 5:21 PM PDT Approved by: Ruby Cunningham MD, PhD on 06/16/2022 5:21 PM PDT Station ID: [id number]
--- NOTE | 2022-06-16 17:58 | XRAY Report ---
PROCEDURE: Lumbar Spine Complete INDICATIONS: LOW BACK PX TECHNIQUE: 5 views of the lumbar spine were acquired. COMPARISON: None. FINDINGS: Bones: 5 [id number] vertebrae are present. There is mild levoscoliosis centered at L3-4 level. 7 mm retrolisthesis of L1 on L2 and L2 on L3 is seen. There is 4 mm anterolisthesis of L3 on L4. Deg enerative endplate changes and bilateral fibrosis throughout lumbar spine is seen. Oblique views show s no gross pars defects. No vertebral body compression fractures. No suspicious bony lesions. Soft tissues: Overlying bowel gas pattern is normal. No suspicious soft tissue calcifications. IMPRESSION: . Degenerative disc disease throughout lumbar spine. No acute compression fracture. Grade 1 retrolist hesis at L1-2 and L2-3 levels and grade 1 anterolisthesis at L3-4 level as above. No gross pars defec ts. Reviewed by: Pito Olmos MD on 06/16/2022 4:57 PM AKVONDA Approved by: Pito Olmos MD on 06/16/2022 4:57 PM AKDT Station ID: [id number]
== END 2022-06-16 13:58 | disposition home or self-care (01) ==
LOC: DI.N 13:57
PROVIDERS: ATTEND Nurse Practitioner
DX: M51.34 Other intervertebral disc degeneration, thoracic region (principal); M47.814 Spondylosis without myelopathy or radiculopathy, thoracic region; M16.12 Unilateral primary osteoarthritis, left hip; M17.12 Unilateral primary osteoarthritis, left knee; M25.462 Effusion, left knee; M43.16 Spondylolisthesis, lumbar region; M51.36 Other intervertebral disc degeneration, lumbar region; M41.9 Scoliosis, unspecified

== ENCOUNTER 2023-01-26 13:44 | Outpatient (CLI) | payer MEDICARE, OTHER ==
--- NOTE | 2023-01-27 10:36 | Mammography Report ---
BILATERAL DIGITAL SCREENING MAMMOGRAM 3D/2D: 01/26/2023 CLINICAL: Family history of breast cancer. Routine screening. Comparison is made to exams dated: 01/09/2022 mammogram, 06/28/2021 mammogram, 10/26/2020 mammogram, 1 12/18/2018 mammogram, and 07/08/2018 mammogram - [facility]. Both breasts are heterogeneously dense, which may obscure small masses (category c / 51-75% glandular tissue). There is a possible developing asymmetry in the right breast middle depth lateral region seen on the craniocaudal view only. No other significant masses, calcifications, or other findings are seen in either breast. IMPRESSION: INCOMPLETE: NEEDS ADDITIONAL IMAGING EVALUATION The possible developing asymmetry in the right breast is indeterminate. Additional views with possible ultrasound are recommended. Based on the Tyrer Cuzick model (a risk assessment model) the patients lifetime risk is 19.4% and he r 10 year risk is 10.0%. According to the ACR, ACS, and NCCN guidelines, an annual breast MRI exam al jacy with mammogram is recommended if the patients lifetime risk is 20% or greater. This exam was interpreted at Station ID: [id number]. NOTE: For mammograms, a report in lay terms will be sent to the patient. Approximately 15% of breast malignancies will not be visualized mammographically. In the management of a palpable breast mass, a negative mammogram must not discourage biopsy of a clinically suspicious lesion. Electronically Signed By: Kleber Briceño M.D. slc/:01/26/2023 17:54:45 ACR BI-RADS Category 0: Incomplete 3340F PARENCHYMAL PATTERN: (D) - The breast(s) demonstrate(s) heterogeneously dense fibroglandular parenchy ma. BI-RADS CATEGORY: (0) - 0 Mammo and [place] [id number] Immediate follow-up LATERALITY: (B)
== END 2023-01-26 13:45 | disposition home or self-care (01) ==
LOC: DI.N 13:44
DX: Z12.31 Encounter for screening mammogram for malignant neoplasm of breast (principal); R92.8 Other abnormal and inconclusive findings on diagnostic imaging of breast; Z80.3 Family history of malignant neoplasm of breast

== ENCOUNTER 2023-02-12 09:41 | Outpatient (CLI) | payer MEDICARE, OTHER ==
--- NOTE | 2023-02-12 11:47 | Ultrasound Report ---
LIMITED ULTRASOUND OF RIGHT BREAST: 02/12/2023 CLINICAL: Patient returns today to evaluate a focal asymmetry in the right breast. Comparison is made to exams dated: 02/12/2023 mammogram, 01/26/2023 mammogram, and 01/09/2022 mammogram - [facility]. Ultrasound of the right breast 10 o'clock region was performed. Harris scale images of the real-time e xamination were reviewed. No significant abnormalities were seen sonographically in the right breast. Specifically, no finding to correspond to the patient's screening mammographic abnormality which becomes less apparent on ifeoma tional views. IMPRESSION: PROBABLY BENIGN There is no sonographic correlate to the patient's partially resolved screening mammography abnormali ty. A follow-up right mammogram in 6 months is recommended to demonstrate stability. Findings and recommendations were conveyed to the patient at time of exam. This exam was interpreted at Station ID: [id number]. Electronically Signed By: Alicia sr/:02/12/2023 10:42:10 Ultrasound BI-RADS: 3 Probably benign BI-RADS CATEGORY: (3) - 3 Mammogram [id number] 6 month follow-up LATERALITY: (R)
--- NOTE | 2023-02-12 11:47 | Mammography Report ---
UNILATERAL RIGHT DIGITAL DIAGNOSTIC MAMMOGRAM 3D/2D: 02/12/2023 CLINICAL: Patient returns today to evaluate an asymmetry in the right breast. Comparison is made to exams dated: 01/26/2023 mammogram, 01/09/2022 mammogram, 06/28/2021 mammogram, mammogram, 10/17/2019 mammogram, and 07/08/2018 mammogram - [facility]. There are scattered areas of fibroglandular density in the right breast (category b / 25%-50% glandul ar tissue). A possible 6 mm irregular equal density asymmetry with a spiculated and indistinct margin in the righ t breast localizes to the 10 o'clock posterior depth region. This is confirmed as a discrete structu re on tomography, but is suggested in two projections. No other significant masses or calcifications are seen in the breast. IMPRESSION: INCOMPLETE: NEEDS ADDITIONAL IMAGING EVALUATION The possible 6 mm irregular equal density asymmetry in the right breast most likely is fibroglandular tissue or a lymph node and is indeterminate. An ultrasound is recommended. This was performed imme diately following this exam. Based on the Tyrer Cuzick model (a risk assessment model) the patients lifetime risk is 12.6% and he r 10 year risk is 6.7%. According to the ACR, ACS, and NCCN guidelines, an annual breast MRI exam crescencio ng with mammogram is recommended if the patients lifetime risk is 20% or greater. This exam was interpreted at Station ID: [id number]. NOTE: For mammograms, a report in lay terms will be sent to the patient. Approximately 15% of breast malignancies will not be visualized mammographically. In the management of a palpable breast mass, a negative mammogram must not discourage biopsy of a clinically suspicious lesion. Electronically Signed By: Alicia sr/:02/12/2023 10:12:53 ACR BI-RADS Category 0: Incomplete 3340F PARENCHYMAL PATTERN: (A) - The breast(s) demonstrate(s) scattered fibroglandular densities. BI-RADS CATEGORY: (0) - 0 Ultrasound [id number] Immediate follow-up LATERALITY: (B)
== END 2023-02-12 09:42 | disposition home or self-care (01) ==
LOC: DI 09:41
PROVIDERS: ATTEND Nurse Practitioner
DX: R92.8 Other abnormal and inconclusive findings on diagnostic imaging of breast (principal)

== ENCOUNTER 2023-06-10 12:40 | Outpatient (CLI) | payer MEDICARE, OTHER ==
--- NOTE | 2023-06-10 16:53 | DEXA Report ---
PROCEDURE: Dexa Spine and/or Hip INDICATIONS: OSTEOPENIA TECHNIQUE: Dual energy x-ray absorptiometry (DXA) was performed on a [employer] System. Regions measur ed are the AP Spine, femoral neck, and if needed forearm. COMPARISON: DEXA 05/24/2021 FINDINGS: Lumbar Spine: Bone Mineral Density 0.906 g/cm/cm,T score -2.3, unchanged. Left Femoral Neck: Bone Mineral Density 0.760 g/cm/cm, T score -2.0, compared to -1.8. Left Hip: Bone Mineral Density 0.838 g/cm/cm,T score -1.3, compared to -1.2. (T score greater or equal to -1.0: NORMAL) (T score from -1.1 to -2.4: OSTEOPENIA) (T score less than or equal to -2.5 to: OSTEOPOROSIS) Impression: By WHO criteria, this patient has low bone density (osteopenia)of the lumbar spine and hip. Minimal p rogression is noted at the femoral neck. Patients with diagnosis of osteoporosis or osteopenia should have regular bone mineral density assess ment. For those eligible for Medicare, routine testing is allowed once every 2 years. Testing frequ ency can be increased for patients who have rapidly progressing disease or for those who are receivin g medical therapy to restore bone mass. Reviewed by: Maria Dolores Alex MD on 06/10/2023 4:52 PM PDT Approved by: Maria Dolores Alex MD on 06/10/2023 4:52 PM PDT Station ID: [id number]
== END 2023-06-10 12:41 | disposition home or self-care (01) ==
LOC: DI 12:40
PROVIDERS: ATTEND Nurse Practitioner
DX: M85.89 Other specified disorders of bone density and structure, multiple sites (principal)

== ENCOUNTER 2023-07-24 07:52 | Outpatient (CLI) | payer MEDICARE, OTHER ==
--- NOTE | 2023-07-24 22:45 | Ultrasound Report ---
PROCEDURE: Abdomen Limited INDICATIONS: LIVER CYST TECHNIQUE: Real-time focused scanning was performed of the abdomen, with image documentation. COMPARISONS: 06/17/2022 FINDINGS: Liver: The liver is normal size and the parenchyma is slightly heterogeneous. There is appropriate d irection of flow in the main portal vein. The previously seen left lobe liver cyst is no liver identi fied. No solid liver masses are visible. Gallbladder: The gallbladder is normal without stones, sludge, wall thickening, or pericholecystic fl uid. No sonographic Wild's sign per the technologist. Biliary ducts: Intrahepatic bile ducts are non-dilated. Extrahepatic bile duct caliber measures 6 m m. Normal is 6-7 mm or less in diameter, or 10 mm or less post-cholecystectomy. Pancreas: Proximal pancreas is normal. The tail is not seen due to bowel gas. Right kidney: Normal in size and echotexture. Right kidney measures 11.5 cm long. No hydronephrosis or nephrolithiasis. No solid masses. No complex renal cystic lesions which require follow-up. Aorta: Visualized aorta is normal in caliber at less than 3 cm. IVC: Intrahepatic inferior vena cava is patent. Miscellaneous: No free abdominal fluid. IMPRESSION: 1. Interval resolution versus obscuration of previously seen left lobe liver cyst. 2. Mildly heterogeneous hepatic parenchyma suggestive of mild steatosis versus other intrinsic liver disease. Not significantly changed compared to prior. Reviewed by: Alicia Nye MD on 07/24/2023 10:43 PM PDT Approved by: Alicia Nye MD on 07/24/2023 10:43 PM PDT Station ID: [id number]
== END 2023-07-24 07:53 | disposition home or self-care (01) ==
LOC: DI 07:52
PROVIDERS: ATTEND Nurse Practitioner
DX: K76.89 Other specified diseases of liver (principal)

== ENCOUNTER 2023-10-14 09:05 | Outpatient (CLI) | payer MEDICARE, OTHER ==
--- NOTE | 2023-10-15 13:07 | Mammography Report ---
UNILATERAL RIGHT DIGITAL DIAGNOSTIC MAMMOGRAM 3D/2D: 10/14/2023 CLINICAL: Patient returns for a 6 month follow up of the right breast. Comparison is made to exams dated: 02/12/2023 mammogram, 01/26/2023 mammogram, 01/09/2022 mammogram, mammogram, 10/26/2020 mammogram, and 10/17/2019 mammogram - [facility]. There are scattered areas of fibroglandular density in the right breast (category b / 25%-50% glandul ar tissue). There is a possible stable asymmetry in the right breast at 10 o'clock posterior depth better seen on prior CC view. This was not seen on the prior ultrasound. No other significant masses or calcifications are seen in the breast. IMPRESSION: PROBABLY BENIGN The possible stable asymmetry in the right breast is probably benign. A follow-up mammogram in 6 mon ths is recommended. Based on the Tyrer Cuzick model (a risk assessment model) the patients lifetime risk is 12.6% and he r 10 year risk is 6.7%. According to the ACR, ACS, and NCCN guidelines, an annual breast MRI exam crescencio ng with mammogram is recommended if the patients lifetime risk is 20% or greater. This exam was interpreted at Station ID: [id number]. NOTE: For mammograms, a report in lay terms will be sent to the patient. Approximately 15% of breast malignancies will not be visualized mammographically. In the management of a palpable breast mass, a negative mammogram must not discourage biopsy of a clinically suspicious lesion. Electronically Signed By: Palomo Anna M.D. lc/:10/14/2023 09:58:58 ACR BI-RADS Category 3: Probably benign 3343F PARENCHYMAL PATTERN: (A) - The breast(s) demonstrate(s) scattered fibroglandular densities. BI-RADS CATEGORY: (3) - 3 Mammogram [id number] 6 month follow-up LATERALITY: (B)
== END 2023-10-14 09:06 | disposition home or self-care (01) ==
LOC: DI 09:05
PROVIDERS: ATTEND Nurse Practitioner
DX: R92.8 Other abnormal and inconclusive findings on diagnostic imaging of breast (principal); R92.321 Mammographic fibroglandular density, right breast

== ENCOUNTER 2023-12-08 07:21 | Day surgery (SDC) | payer MEDICARE, OTHER ==
[2023-12-08] MEDS ORDERED: PROPOFOL 500 MG/50 ML 500 MG/50 ML VIAL ONE (07:58)
[2023-12-08] MEDS ORDERED: LACTATED RINGERS 1,000 ML IV ONE ×2 (08:02→08:50)
--- NOTE | 2023-12-08 08:11 | ANESTHESIA ---
Pre-Anesthesia VS, & Labs - Diagnosis screening, history of colon polyps - Procedure colonoscopy Vital Signs: Temp Pulse Resp BP Pulse Ox O2 Flow Rate 36.4 C L 71 11 L 119/78 98 12/08/23 07:54 12/08/23 07:54 12/08/23 07:54 12/08/23 07:54 12/08/23 07:54 Height: 5 ft 4 in Weight (kg): 68.5 kg Body Mass Index: 25.9 BMI Classification: Overweight - NPO Other (prep as directed) - Is Patient ?: No Home Medications and Allergies Aspirin 81 mg PO DAILY 12/10/16 Biotin 5 mg PO DAILY 12/10/16 Calcium Carbonate/Vitamin D3 [Calcium 500-Vit D3 200 Tablet] 1 tab PO DAILY 12/10/16 Cetirizine [ZyrTEC] 10 mg PO DAILY 12/10/16 Esomeprazole Magnesium [Nexium] 20 mg PO DAILY 12/10/16 Magnesium 250 mg PO DAILY 12/10/16 buPROPion HCL [Wellbutrin Xl] 300 mg PO DAILY 12/10/16 Diltiazem HCl [Diltiazem 12Hr ER] 120 mg PO DAILY 11/30/20 Valacyclovir HCl [Valtrex] 500 mg PO DAILY 11/30/20 Allergies/Adverse Reactions: Allergies Allergy/AdvReac Type Severity Reaction Status Date / Time amoxicillin Allergy Nausea Verified 11/30/20 19:14 Sulfa (Sulfonamide Allergy Rash Verified 11/30/20 19:14 Antibiotics) Anes History & Medical History - Anesthetic History Anesthesia Complications: reports: No previous complications - Medical History Cardiovascular: reports: High cholesterol, Atrial fibrillation, Murmur Pulmonary: reports: None Gastrointestinal: reports: GERD Smoking Status: Never smoker - Surgical History General: reports: Colonoscopy, Other Exam General: Alert, Oriented x3 Dental: WNL Mouth Opening: Greater than 4 Fingerbreadths Neck Mobility: Normal Mallampati classification: II Thyromental Distance: greater than 6 cm Respiratory: Lungs clear Cardiovascular: Regular rate Plan Anesthesia Type: Total IV Consent for Procedure(s) Verified and Reviewed: Yes Code Status: Attempt Resuscitation ASA classification: 2-Mild systemic disease Is this case an emergency?: No
[2023-12-08] MEDS ORDERED: LIDOCAINE-PF 2% 10 ML AMP SUBQ ONE (08:15)
--- NOTE | 2023-12-08 09:09 | ANESTHESIA POST OP EVALUATION ---
Anesthesia Post Eval - Post Anesthesia Eval Vitals: Last Vital Signs Temp 36.2 C L 12/08/23 09:00 Pulse 60 12/08/23 09:00 Resp 16 12/08/23 09:00 BP 100/87 H 12/08/23 09:00 Pulse Ox 98 12/08/23 09:00 O2 Flow Rate CV Function Including HR & BP: Stable Pain Control: Satisfactory Nausea & Vomiting: Negative Mental Status: Baseline Respiratory Status: Airway Patent Hydration Status: Satisfactory Anesthesia Complications: None
[2023-12-08 09:26] VITALS: BP 109/72; O2SAT 97
== END 2023-12-08 07:22 | disposition home or self-care (01) ==
LOC: SDS 07:21
PROVIDERS: ATTEND Surgery
PROC: 0DBN8ZZ Excision of Sigmoid Colon, Via Natural or Artificial Opening Endoscopic (ICD-10-PCS; principal; 2023-12-08 08:30)
DX: Z12.11 Encounter for screening for malignant neoplasm of colon (principal); K63.5 Polyp of colon; I48.91 Unspecified atrial fibrillation
CPT/HCPCS: 45380; J7120

== ENCOUNTER 2024-05-26 09:44 | Outpatient (CLI) | payer MEDICARE, OTHER ==
--- NOTE | 2024-05-27 09:05 | Mammography Report ---
BILATERAL DIGITAL DIAGNOSTIC MAMMOGRAM 3D/2D: 05/26/2024 CLINICAL: Patient returns for a 6 month follow up of the right breast, due for bilateral exam. Comparison is made to exams dated: 10/14/2023 mammogram, 02/12/2023 mammogram, 01/26/2023 mammogram, mammogram, 06/28/2021 mammogram, and 10/26/2020 mammogram - [facility]. There are scattered areas of fibroglandular density in both breasts (category b / 25%-50% glandular t issue). There is a possible 6 mm asymmetry in the right breast at 10 o'clock posterior depth. This is not si gnificantly changed and was not seen on the prior ultrasound. No other significant masses, calcifications, or other findings are seen in either breast. IMPRESSION: PROBABLY BENIGN The possible 6 mm asymmetry in the right breast is not significantly changed and is probably benign. A follow-up bilateral mammogram and a possible right ultrasound in 12 months is recommended to docume nt mcfp stability. Findings and recommendations were conveyed to the patient during today's evaluation. Based on the Tyrer Cuzick model (a risk assessment model) the patient's lifetime risk is 11.9% and he r 10 year risk is 6.7%. According to the ACR, ACS, and NCCN guidelines, an annual breast MRI exam crescencio ng with mammogram is recommended if the patient's lifetime risk is 20% or greater. This exam was interpreted at Station ID: [id number]. NOTE: For mammograms, a report in lay terms will be sent to the patient. Approximately 15% of breast malignancies will not be visualized mammographically. In the management of a palpable breast mass, a negative mammogram must not discourage biopsy of a clinically suspicious lesion. Electronically Signed By: Ollie Stock M.D. aty/:05/26/2024 18:05:12 ACR BI-RADS Category 3: Probably benign 3343F PARENCHYMAL PATTERN: (A) - The breast(s) demonstrate(s) scattered fibroglandular densities. BI-RADS CATEGORY: (3) - 3 Mammo and [place] [id number] 12 month follow-up LATERALITY: (B)
== END 2024-05-26 09:45 | disposition home or self-care (01) ==
LOC: DI 09:44
PROVIDERS: ATTEND Nurse Practitioner
DX: R92.8 Other abnormal and inconclusive findings on diagnostic imaging of breast (principal); R92.323 Mammographic fibroglandular density, bilateral breasts

== ENCOUNTER 2024-07-08 07:20 | Outpatient (CLI) | payer MEDICARE, OTHER ==
[2024-07-08 12:08] LABS: BASOPHILS # (AUTO) 0.1 10^3/uL (0.0-0.1); BASOPHILS % (AUTO) 1.1 %; EOSINOPHILS # (AUTO) 0.1 10^3/uL (0.0-0.7); EOSINOPHILS % (AUTO) 2.6 %; HCT - HEMATOCRIT 43.1 % (37.0-47.0); HGB - HEMOGLOBIN 14.3 g/dL (12.0-16.0); LYMPHOCYTES # (AUTO) 1.8 10^3/uL (1.5-3.5); LYMPHOCYTES % (AUTO) 33.5 %; MEAN CORPUSCULAR HEMOGLOBIN 32.3 pg (27.0-31.0); MEAN CORPUSCULAR HGB CONC 33.2 g/dL (32.0-36.0); MEAN CORPUSCULAR VOLUME 97.3 fL (81.0-99.0); MEAN PLATELET VOLUME 10.3 fL (7.9-10.8); MONOCYTES # (AUTO) 0.4 10^3/uL (0.0-1.0); MONOCYTES % (AUTO) 7.7 %; NEUTROPHILS % (AUTO) 54.9 %; PLT - PLATELET COUNT 268 10^3/uL (130-450); RED BLOOD COUNT 4.43 10^6/uL (4.20-5.40); RED CELL DISTRIBUTION WIDTH 12.7 % (12.0-15.0); WHITE BLOOD COUNT 5.5 x10^3/uL (4.8-10.8)
[2024-07-08 12:32] LABS: ALBUMIN 4.3 g/dL (3.2-5.5); ALBUMIN/GLOBULIN RATIO 1.7 (1.0-2.2); ALKALINE PHOSPHATASE 69 IU/L (42-121); ALT ALANINE AMINOTRANSFERASE 13 IU/L (10-60); AST ASPARTATE AMINOTRANSFERASE 10 IU/L (10-42); BILIRUBIN,TOTAL 0.3 mg/dL (0.2-1.0); BUN - BLOOD UREA NITROGEN 18 mg/dL (6-20); CALCIUM 9.3 mg/dL (8.5-10.3); CARBON DIOXIDE - CO2 32 mmol/L (21-32); CHLORIDE 107 mmol/L (101-111); CHOL/HDL RATIO 3.3 (<4.4); CHOLESTEROL 225 mg/dL; CREATININE 0.7 mg/dL (0.6-1.3); GFR - MDRD 83 (>89); GLUCOSE 108 mg/dL (74-104); HDL CHOLESTEROL 68 mg/dL; LDL CHOLESTEROL,CALCULATED 139 mg/dL; POTASSIUM 4.2 mmol/L (3.5-4.5); SODIUM 142 mmol/L (135-145); TOTAL PROTEIN 6.8 g/dL (6.4-8.9); TRIGLYCERIDES 89 mg/dL; VLDL CHOLESTEROL 18 mg/dL
[2024-07-08 12:46] LABS: ESTIMATED AVERAGE GLUCOSE 103 mg/dL (70-100); HEMOGLOBIN A1c% 5.2 % (4.27-6.07)
== END 2024-07-08 07:21 | disposition home or self-care (01) ==
LOC: LAB.N 07:20
PROVIDERS: ATTEND Nurse Practitioner
DX: E78.5 Hyperlipidemia, unspecified (principal); Z79.899 Other long term (current) drug therapy; R73.03 Prediabetes; I48.0 Paroxysmal atrial fibrillation
CPT/HCPCS: 36415; 80053; 80061; 83036; 83721; 84443; 85025